=== PATIENT | female | born 1960 | race Two or more races ===

== ENCOUNTER → 2020-01-31 | Outpatient (CLI) | payer OTHER | END | disposition home or self-care (01) | LOC: SONOGRAMA 09:39 | DX: E04.1 Nontoxic single thyroid nodule (principal) ==

== ENCOUNTER → 2022-11-22 | Outpatient (CLI) | payer OTHER | END | disposition home or self-care (01) | LOC: SONOGRAMA 10:13 | PROVIDERS: ATTEND Pathology Anatomic Pathology & Clinical Pathology | DX: D34 Benign neoplasm of thyroid gland (principal); E04.1 Nontoxic single thyroid nodule; E07.9 Disorder of thyroid, unspecified; E04.2 Nontoxic multinodular goiter ==